=== PATIENT | male | born 1965 | race Caucasian/White ===

== ENCOUNTER 2017-02-18 22:45 | Observation (INO) | payer OTHER ==
[~2017-02-18] VITALS: Ht 180.3 cm; Wt 94.7 kg
[2017-02-19] VITALS (10 sets, daily range): BP systolic 98–133; BP diastolic 59–84
--- NOTE | 2017-02-19 00:32 | ED CLINICAL REPORT ---
Clinical Report - Physicians/Mid Levels [facility] [address] [place] [address] 02/18/2017 22:47 [id number] Time Seen: 23:19 Feb 18 2017. Arrived- By private vehicle. Historian- patient. CPT: ER phys charges level 5 (#[id number]). HISTORY OF PRESENT ILLNESS Chief Complaint: ABDOMINAL PAIN. It is described as "pain" and it is described as located in the periumbilical area. 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 (about 2 - 3 days ago, but worsened today starting about 8 hours ago). He has had nausea and abdominal pain. Last oral intake by patient was (about about 13 hours ago). and is still present. At its maximum, severity described as moderate. When seen in the E.D., severity described as severe. Modifying factors- worsened by movement. Not relieved by anything. The patient has had nausea and loss of appetite. No vomiting or diarrhea. Similar symptoms previously: None. Recent medical care: Not recently seen/assessed. REVIEW OF SYSTEMS No constipation, black stools, hematemesis, difficulty with urination or pain with urination. No urinary frequency, fever, sore throat or throat or chest pain. No difficulty breathing, cough, joint pain, skin rash or chills. No back pain, diabetic symptoms or easy bruising. All systems otherwise negative, except as recorded above. PAST HISTORY Testicular Torsion. Myocardial Infarction. Medications: Lisinopril Oral, daily. Metoprolol Succinate ER Oral, daily. Allergies: No Known Drug Allergy. SOCIAL HISTORY Heavy tobacco smoker (cigarette)- less than 1 pack per day. Heavy alcohol use; consumes a large amount of wine. History of drug use: marijuana. ADDITIONAL NOTES The nursing notes have been reviewed. PHYSICAL EXAM Vital Signs: 02/18/2017 22:50 BP: 108/68. HR: 62. RR: 16. O2 saturation: 97%. Temp: 98.1 F. Appearance: Alert. Appears to be in pain. Patient in moderate distress. Eyes: Pupils equal, round and reactive to light. Eyes normal inspection. ENT: Ears normal. Nose normal. Pharynx normal. Neck: Normal inspection. Neck supple. CVS: Normal heart rate and rhythm. Heart sounds normal. Pulses normal. Respiratory: No respiratory distress. Breath sounds normal. Chest nontender. Abdomen: Severe tenderness in the epigastric area (over an umbilical hernia.). Abnormal bowel sounds: absent. Back: Normal inspection. Skin: Skin warm. Normal skin color. No rash. Extremities: Extremities exhibit normal ROM. No lower extremity edema. Neuro: Oriented X 3. No motor deficit. No sensory deficit. Reflexes normal. LABS, X-RAYS, AND EKG Abdominal CT: Umbilical hernia , fat containing but adjacent bowel that may be edemetous as has thickened wall. Abdominal CT performed with IV contrast. The study was independently viewed by me and interpreted by the radiologist. Laboratory Tests: CBC w Diff: (EDGARD: 02/18/2017 22:50) ( [facility] [place]18[place] 23:30[place] Final results Test Result Flag Units (Reference) WHITE BLOOD COUNT 11.7 H K/uL (4.5-11.5) RED BLOOD COUNT 4.75 M/uL (4.50-5.90) HEMOGLOBIN 15.4 gm/dL (13.5-17.5) HEMATOCRIT 46.1 % (41.0-53.0) MEAN CELL VOLUME 97 fL (80-100) MEAN CORPUSCULAR HGB 32 pg (26-34) MEAN CORPUSCULAR HGB CONC 33 g/dL (31-37) RED CELL DISTRIBUTION WIDTH 13.9 % (11.6-14.8) PLATELET COUNT 184 K/uL (150-400) LYMPH % 36.0 % (25-40) MONO % 6.2 % (3-14) GRANULOCYTE % 57.8 CHEM 13 PANEL: (EDGARD: 02/18/2017 22:50) ( [facility] [place] 02/18/2017 23:43) Final results Test Result Flag Units (Reference) GLUCOSE 107 mg/dL (70-110) BUN 13 mg/dL (7-18) CREATININE 1.0 mg/dL (0.6-1.3) Estimated GFR >60 mL/min Estimated GFR- >60 mL/min Note: Persistent reduction over 3 months in eGFR<60 mL/min/1.73 m2 defines CKD. Patients with eGFR values>=60 mL/min/1.73 m2 may also have CKD if evidence ofpersistent proteinuria. Additional information may be foundat www.kidney.org. SODIUM 143 mmol/L (136-145) POTASSIUM 3.8 mmol/L (3.5-5.1) CHLORIDE 104 mmol/L (98-107) CARBON DIOXIDE 25 mmol/L (21-32) CALCIUM 8.7 mg/dL (8.5-10.1) TOTAL PROTEIN 7.3 g/dL (6.4-8.2) ALBUMIN 3.8 g/dL (3.3-5.0) BILIRUBIN, TOTAL 0.6 mg/dL (0.0-1.0) ALKALINE PHOSPHATASE 64 U/L (46-116) AST (SGOT) 18 U/L (15-37) ALT (SGPT) 28 U/L (12-78) MAGNESIUM 2.1 mg/dL (1.8-2.4) CPK 108 U/L (24-260) TROPONIN I <0.05 ng/mL (0.00-1.5) TROPONIN REFERENCE RANGE:<0.1 NEGATIVE0.1-1.5 INDETERMINANT>1.5 POSITIVE . PROGRESS AND PROCEDURES Course of Care: IV NS Dilaudid 0.5 mg IV Zofran 4 mg IV Patient is stable. Symptoms much better. Discussed case with on-call health care provider, (Kristy). Reviewed test results. Agreed upon treatment plan and decision to admit. Health care provider will see patient in hospital. Patient/family counseled. Disposition orders written. Disposition: Admitted to Acute Care. CLINICAL IMPRESSION Acute incarcerated umbilical hernia. INSTRUCTIONS Warnings: Further evaluation is necessary. (Electronically signed by Jasen Lynch MD 02/19/2017 15:06)
--- NOTE | 2017-02-19 00:32 | ED ORDER SUMMARY ---
..... Patient: BORIS WHITE OrderSheet [facility] VisitID: [id number] [place] [address] 51y, M Registration Date/Time: 02/18/2017 ORDER SHEET Weight: 97.5 kg (stated) Allergies: No Known Drug Allergy GENERAL ORDERS: CT Abd/Pel w Cont (No) (pending) Urgent (23:02/18/2017 [place] CASTRO) (Ack 23:28 Shon) (23:59 Yunior R.N.) Cardiac Panel Stat (:02/18/2017 [place]) (Ack 23:28 Shon) (23:37 JYuval R.N.) PT with INR Urgent (:02/19/2017 [place]) (Ack 1:20 Shon) (1:47 Ngoziy R.N.) PTT Urgent (:02/19/2017 [place]) (Ack 1:20 Shon) (1:47 JQuivey R.N.) MEDICATION ORDERS: IV FLUIDS: IV Saline Lock (22:56 02/18/2017 Jenna Stallings.Tai verbal order read back to [place]) (22:57 Jenna R.N.) IV NS : initial bolus none -, then 150 mL/hr for 4h (NOW); Routine (23:02/18/2017 [place]) (Ack 23:26 EleQuivey R.N.) (23:35 JQuivey R.N.) Dilaudid IV 0.5 mg (NOW) (:02/18/2017 [place]) (Ack 23:26 Yunior R.N.) (23:36 JQuivey R.N.) Zofran IV 4 mg (NOW) (:02/18/2017 [place]) (Ack 23:26 Averyivemike R.N.) (23:36 JQuivey R.N.) ORDER SHEET NOTES: [Electronically signed by Abdi Barakat R.N. (02:02/19/2017)] [Electronically signed by Jasen Lynch MD (15:02/19/2017)] [Electronically locked/signed by Abdi Barakat R.N. (02:02/19/2017)]
--- NOTE | 2017-02-19 00:32 | ED ORDER SUMMARY ---
..... Patient: BORIS WHITE OrderSheet [facility] VisitID: [id number] [place] [address] 51y, M Registration Date/Time: 02/18/2017 ORDER SHEET Weight: 97.5 kg (stated) Allergies: No Known Drug Allergy GENERAL ORDERS: CT Abd/Pel w Cont (No) (pending) Urgent (23:02/18/2017 [place]) (Ack 23:28 Shon) (23:59 Yunior R.N.) Cardiac Panel Stat (:02/18/2017 [place]) (Ack 23:28 Shon) (23:37 JYuval R.N.) PT with INR Urgent (:02/19/2017 [place]) (Ack 1:20 Shon) (1:47 Ngoziy R.N.) PTT Urgent (:02/19/2017 [place]) (Ack 1:20 Shon) (1:47 JQuivey R.N.) MEDICATION ORDERS: IV FLUIDS: IV Saline Lock (22:56 02/18/2017 Jenna Stallings.Tai verbal order read back to [place]) (22:57 Jenna R.N.) IV NS : initial bolus none -, then 150 mL/hr for 4h (NOW); Routine (23:02/18/2017 [place]) (Ack 23:26 EleQuivey R.N.) (23:35 JQuivey R.N.) Dilaudid IV 0.5 mg (NOW) (:02/18/2017 [place]) (Ack 23:26 Yunior R.N.) (23:36 JQuivey R.N.) Zofran IV 4 mg (NOW) (:02/18/2017 [place]) (Ack 23:26 Averyivemike R.N.) (23:36 JQuivey R.N.) ORDER SHEET NOTES: [Electronically signed by Abdi Barakat R.N. (02:02/19/2017)] [Electronically signed by Jasen Lynch MD (15:02/19/2017)] [Electronically locked/signed by Abdi Barakat R.N. (02:02/19/2017)]
--- NOTE | 2017-02-19 00:32 | ED NURSING NOTES ---
Clinical Report - Nurses [facility] [address] [place] [address] 02/18/2017 22:47 [id number] Triage time 22:50 Feb 18 2017. Acuity: LEVEL 3. Chief Complaint: ABDOMINAL PAIN and NAUSEA. Alert. HELENA COMA SCORE: [place] Coma Scale: 15- eyes open spontaneously (4); best verbal response- oriented x 4 (5); best motor response- obeys commands (6). --23:08 Abdi Burns R.N. 22:50 02/18/17. BP: 108/68. HR: 62. RR: 16. O2 saturation: 97% on room air. Temp: 98.1 F. --23:08 Abdi Burns R.N. Weight: 97.5 kg stated. Height/Length: 71 inches Per Patient. BMI: 30. --22:57 Abdi Burns R.N. Medications Metoprolol Succinate ER Oral, daily. --22:53 Abdi Burns R.N. Lisinopril Oral, daily. --22:54 Adbi Burns R.N. Medication/allergy information source: the patient. --23:08 Abdi Burns R.N. Allergies No Known Drug Allergy. --22:55 Abdi Burns R.N. History Arrived by private vehicle. Historian: patient. Accompanied by spouse. Primary physician ([place]). ( LLQ and periumbilical abdominal pain.). Onset. (about 2 - 3 days ago, but worsened today starting about 8 hours ago). He has had nausea and abdominal pain. Last oral intake by patient was (about about 13 hours ago). 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 PAST MEDICAL HX: Immunizations: status is unknown. SOCIAL HX: Heavy tobacco smoker (cigarette)- 1 pack per day. Alcohol use; consumes four bottles of wine. History of drug use: marijuana. No recent travel. No infectious disease exposure. No known contact with a sick individual. ABUSE ASSESSMENT: No report of abuse. FALL RISK ASSESSMENT: Fall risk assessment completed. No fall risk identified. NUTRITIONAL RISK ASSESSMENT: The nutritional risk assessment revealed no deficiencies. FUNCTIONAL ASSESSMENT: Functional assessment: no impairments noted. LEARNING NEEDS ASSESSMENT: The learning needs assessment revealed no barriers. SKIN INTEGRITY ASSESSMENT: Skin integrity risk assessment completed. No skin integrity risk identified. --23:08 Abdi Burns R.N. PROBLEMS: Testicular Torsion. Myocardial Infarction. --23:04 Abdi Burns R.N. Interventions ID band on patient. To treatment room. --23:08 Abdi Burns R.N. PHYSICAL ASSESSMENT Ambulatory to room. GENERAL / NEURO / PSYCH: Alert. Oriented X 4. Appears in pain. HEENT: Mucous membranes are pink. RESPIRATORY: Respirations not labored. CVS: Normal sinus rhythm noted. GI / : Abdomen soft and nontender. SKIN: Skin is warm and dry. --23:08 Abdi Burns R.N. NURSING PROGRESS NOTES 22:52 02/18/2017 Site #1 started via IV in the right forearm with an 18g angiocath, with aseptic technique and good blood return; one attempt. Blood drawn: rainbow set. Labeled in the presence of the patient and sent to the lab. Saline lock flushed with 10 mL saline (start by Tami Patton, RN). --22:57 Abdi Burns R.N. Oxygen administered. Monitoring of patient in place. Patient gowned. Reassurance given to the patient. Patient identifiers checked. Call light placed in reach. Side rails up x 1. Bed placed in lowest position. Brakes of bed on. Patient ready for evaluation- chart flagged and ED physician notified. --23:09 Abdi Burns R.N. 23:30 02/18/2017 Started bag #1 1000 mL IV Fluids IV NS (Saline); at 150 mL/hr over 4 hour(s) via site #1 via IV pump. Allergies verified and confirmed 5 rights. IV patency established. IV site checked: no pain, redness, or swelling. IV flushed thoroughly pre- and post-medication administration. --23:35 Abdi Barakat R.N. 23:31 02/18/2017 Zofran (Ondansetron HCl) IVP 4 mg given over 2 minute(s) via site #1. Allergies verified and confirmed 5 rights. IV patency established. IV site checked: no pain, redness, or swelling. IV flushed thoroughly pre- and post-medication administration. --23:36 Abdi Barakat R.N. 23:33 02/18/2017 Dilaudid (HYDROmorphone HCl PF) IVP 0.5 mg given over 2 minute(s) via site #1. Allergies verified, confirmed 5 rights and sedative warning given to the patient and patient's family. IV patency established. IV site checked: no pain, redness, or swelling. IV flushed thoroughly pre- and post-medication administration. --23:36 Abdi Barakat R.N. 23:40. Patient ID band checked for patient name and birthdate: patient confirmed. Clean catch urine collected with return of yellow-colored clear urine; sample sent to lab. Specimen labeled in the presence of the patient. --23:49 Abdi Barakat R.N. 23:47. Patient transported to CT by stretcher with tech. --23:49 Abdi Barakat R.N. 23:57. Patient returned from CT by stretcher with tech. --23:57 Abdi Barakat R.N. 00:15 02/19/17. BP: 115/66. HR: 58. RR: 16. O2 saturation: 95%. Pain level now: 12/28. --00:18 Abdi Burns R.N. DISPOSITION / DISCHARGE 00:57 02/19/17. BP: 113/70. HR: 73. RR: 15. O2 saturation: 94% on room air. Pain level now: 12/28. --01:25 Abdi Barakat R.N. Condition at departure: stable. No learning barriers present. Disposition: observation in Acute Care. Transported via stretcher by tech with IV. Patient's personal items include: glasses, Other belongings; items were placed in belongings bag and transported with the patient. He did not have contacts, dentures or a hearing aid. FALL RISK ASSESSMENT: Fall risk assessment completed. No fall risk identified. --01:25 Abdi Barakat R.N. 01:25 02/19/17. BP: 104/65. HR: 70. RR: 16. O2 saturation: 96% on room air. Pain level now: 12/28. --01:26 Abdi Barakat R.N. 01:31. Report was given via a phone call. Report included patient's care, treatment, medications, reviewed medication reconcilliation, and condition (including any recent changes or anticipated changes). All questions were answered. Report was acknowledged. (Eugenie SaabPhlebotomy Lab Assistant). --01:31 Abdi Barakat R.N. 01:50 02/19/2017 IV Fluids IV NS Continued: upon admission at the rate of 150 mL/hr. 625 mL remaining bag #1. IV patency established. IV site checked: no pain, redness, or swelling. IV flushed thoroughly. --01:50 Abdi Barakat R.N. Departure time: 01:56. --01:56 Abdi Barakat R.N. Locked/Released at 02/19/2017 2:06 by Abdi Barakat R.N.
--- NOTE | 2017-02-19 00:32 | ED NURSING NOTES ---
Clinical Report - Nurses [facility] [address] [place] [address] 02/18/2017 22:47 [id number] TRI[facility] Triage time 22:50 Feb 18 2017. Acuity: LEVEL 3. Chief Complaint: ABDOMINAL PAIN and NAUSEA. Alert. HELENA COMA SCORE: [place] Coma Scale: 15- eyes open spontaneously (4); best verbal response- oriented x 4 (5); best motor response- obeys commands (6). --23:08 Abdi Burns R.N. 22:50 02/18/17. BP: 108/68. HR: 62. RR: 16. O2 saturation: 97% on room air. Temp: 98.1 F. --23:08 Abdi Burns R.N. Weight: 97.5 kg stated. Height/Length: 71 inches Per Patient. BMI: 30. --22:57 Abdi Burns R.N. Medications Metoprolol Succinate ER Oral, daily. --22:53 Abdi Burns R.N. Lisinopril Oral, daily. --22:54 Abdi Burns R.N. Medication/allergy information source: the patient. --23:08 Abdi Burns R.N. Allergies No Known Drug Allergy. --22:55 Abdi Burns R.N. History Arrived by private vehicle. Historian: patient. Accompanied by spouse. Primary physician ([place]). ( LLQ and periumbilical abdominal pain.). Onset. (about 2 - 3 days ago, but worsened today starting about 8 hours ago). He has had nausea and abdominal pain. Last oral intake by patient was (about about 13 hours ago). 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 PAST MEDICAL HX: Immunizations: status is unknown. SOCIAL HX: Heavy tobacco smoker (cigarette)- 1 pack per day. Alcohol use; consumes four bottles of wine. History of drug use: marijuana. No recent travel. No infectious disease exposure. No known contact with a sick individual. ABUSE ASSESSMENT: No report of abuse. FALL RISK ASSESSMENT: Fall risk assessment completed. No fall risk identified. NUTRITIONAL RISK ASSESSMENT: The nutritional risk assessment revealed no deficiencies. FUNCTIONAL ASSESSMENT: Functional assessment: no impairments noted. LEARNING NEEDS ASSESSMENT: The learning needs assessment revealed no barriers. SKIN INTEGRITY ASSESSMENT: Skin integrity risk assessment completed. No skin integrity risk identified. --23:08 Abdi Burns R.N. PROBLEMS: Testicular Torsion. Myocardial Infarction. --23:04 Abdi Burns R.N. Interventions ID band on patient. To treatment room. --23:08 Abdi Burns R.N. PHYSICAL ASSESSMENT Ambulatory to room. GENERAL / NEURO / PSYCH: Alert. Oriented X 4. Appears in pain. HEENT: Mucous membranes are pink. RESPIRATORY: Respirations not labored. CVS: Normal sinus rhythm noted. GI / : Abdomen soft and nontender. SKIN: Skin is warm and dry. --23:08 Abdi Burns R.N. NURSING PROGRESS NOTES 22:52 02/18/2017 Site #1 started via IV in the right forearm with an 18g angiocath, with aseptic technique and good blood return; one attempt. Blood drawn: rainbow set. Labeled in the presence of the patient and sent to the lab. Saline lock flushed with 10 mL saline (start by Tami Patton, RN). --22:57 Abdi Burns R.N. Oxygen administered. Monitoring of patient in place. Patient gowned. Reassurance given to the patient. Patient identifiers checked. Call light placed in reach. Side rails up x 1. Bed placed in lowest position. Brakes of bed on. Patient ready for evaluation- chart flagged and ED physician notified. --23:09 Abdi Burns R.N. 23:30 02/18/2017 Started bag #1 1000 mL IV Fluids IV NS (Saline); at 150 mL/hr over 4 hour(s) via site #1 via IV pump. Allergies verified and confirmed 5 rights. IV patency established. IV site checked: no pain, redness, or swelling. IV flushed thoroughly pre- and post-medication administration. --23:35 Abdi Barakat R.N. 23:31 02/18/2017 Zofran (Ondansetron HCl) IVP 4 mg given over 2 minute(s) via site #1. Allergies verified and confirmed 5 rights. IV patency established. IV site checked: no pain, redness, or swelling. IV flushed thoroughly pre- and post-medication administration. --23:36 Abdi Barakat R.N. 23:33 02/18/2017 Dilaudid (HYDROmorphone HCl PF) IVP 0.5 mg given over 2 minute(s) via site #1. Allergies verified, confirmed 5 rights and sedative warning given to the patient and patient's family. IV patency established. IV site checked: no pain, redness, or swelling. IV flushed thoroughly pre- and post-medication administration. --23:36 Abdi Barakat R.N. 23:40. Patient ID band checked for patient name and birthdate: patient confirmed. Clean catch urine collected with return of yellow-colored clear urine; sample sent to lab. Specimen labeled in the presence of the patient. --23:49 Abdi Barakat R.N. 23:47. Patient transported to CT by stretcher with tech. --23:49 Abdi Barakat R.N. 23:57. Patient returned from CT by stretcher with tech. --23:57 Abdi Barakat R.N. 00:15 02/19/17. BP: 115/66. HR: 58. RR: 16. O2 saturation: 95%. Pain level now: 12/28. --00:18 Abdi Burns R.N. DISPOSITION / DISCHARGE 00:57 02/19/17. BP: 113/70. HR: 73. RR: 15. O2 saturation: 94% on room air. Pain level now: 12/28. --01:25 Abdi Barakat R.N. Condition at departure: stable. No learning barriers present. Disposition: observation in Acute Care. Transported via stretcher by tech with IV. Patient's personal items include: glasses, Other belongings; items were placed in belongings bag and transported with the patient. He did not have contacts, dentures or a hearing aid. FALL RISK ASSESSMENT: Fall risk assessment completed. No fall risk identified. --01:25 Abdi Barakat R.N. 01:25 02/19/17. BP: 104/65. HR: 70. RR: 16. O2 saturation: 96% on room air. Pain level now: 12/28. --01:26 Abdi Barakat R.N. 01:31. Report was given via a phone call. Report included patient's care, treatment, medications, reviewed medication reconcilliation, and condition (including any recent changes or anticipated changes). All questions were answered. Report was acknowledged. (Eugenie SaabClinical Trial Assistant). --01:31 Abdi Barakat R.N. 01:50 02/19/2017 IV Fluids IV NS Continued: upon admission at the rate of 150 mL/hr. 625 mL remaining bag #1. IV patency established. IV site checked: no pain, redness, or swelling. IV flushed thoroughly. --01:50 Abdi Barakat R.N. Departure time: 01:56. --01:56 Abdi Barakat R.N. Locked/Released at 02/19/2017 2:06 by Abdi Barakat R.N.
--- NOTE | 2017-02-19 00:32 | ED CLINICAL REPORT ---
Clinical Report - Physicians/Mid Levels [facility] [address] [place] [address] 02/18/2017 22:47 [id number] Time Seen: 23:19 Feb 18 2017. Arrived- By private vehicle. Historian- patient. CPT: ER phys charges level 5 (#[id number]). HISTORY OF PRESENT ILLNESS Chief Complaint: ABDOMINAL PAIN. It is described as "pain" and it is described as located in the periumbilical area. 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 (about 2 - 3 days ago, but worsened today starting about 8 hours ago). He has had nausea and abdominal pain. Last oral intake by patient was (about about 13 hours ago). and is still present. At its maximum, severity described as moderate. When seen in the E.D., severity described as severe. Modifying factors- worsened by movement. Not relieved by anything. The patient has had nausea and loss of appetite. No vomiting or diarrhea. Similar symptoms previously: None. Recent medical care: Not recently seen/assessed. REVIEW OF SYSTEMS No constipation, black stools, hematemesis, difficulty with urination or pain with urination. No urinary frequency, fever, sore throat or throat or chest pain. No difficulty breathing, cough, joint pain, skin rash or chills. No back pain, diabetic symptoms or easy bruising. All systems otherwise negative, except as recorded above. PAST HISTORY Testicular Torsion. Myocardial Infarction. Medications: Lisinopril Oral, daily. Metoprolol Succinate ER Oral, daily. Allergies: No Known Drug Allergy. SOCIAL HISTORY Heavy tobacco smoker (cigarette)- less than 1 pack per day. Heavy alcohol use; consumes a large amount of wine. History of drug use: marijuana. ADDITIONAL NOTES The nursing notes have been reviewed. PHYSICAL EXAM Vital Signs: 02/18/2017 22:50 BP: 108/68. HR: 62. RR: 16. O2 saturation: 97%. Temp: 98.1 F. Appearance: Alert. Appears to be in pain. Patient in moderate distress. Eyes: Pupils equal, round and reactive to light. Eyes normal inspection. ENT: Ears normal. Nose normal. Pharynx normal. Neck: Normal inspection. Neck supple. CVS: Normal heart rate and rhythm. Heart sounds normal. Pulses normal. Respiratory: No respiratory distress. Breath sounds normal. Chest nontender. Abdomen: Severe tenderness in the epigastric area (over an umbilical hernia.). Abnormal bowel sounds: absent. Back: Normal inspection. Skin: Skin warm. Normal skin color. No rash. Extremities: Extremities exhibit normal ROM. No lower extremity edema. Neuro: Oriented X 3. No motor deficit. No sensory deficit. Reflexes normal. LABS, X-RAYS, AND EKG Abdominal CT: Umbilical hernia , fat containing but adjacent bowel that may be edemetous as has thickened wall. Abdominal CT performed with IV contrast. The study was independently viewed by me and interpreted by the radiologist. Laboratory Tests: CBC w Diff: (EDGARD: 02/18/2017 22:50) ( [facility] 02/18/2017 23:30) Final results Test Result Flag Units (Reference) WHITE BLOOD COUNT 11.7 H K/uL (4.5-11.5) RED BLOOD COUNT 4.75 M/uL (4.50-5.90) HEMOGLOBIN 15.4 gm/dL (13.5-17.5) HEMATOCRIT 46.1 % (41.0-53.0) MEAN CELL VOLUME 97 fL (80-100) MEAN CORPUSCULAR HGB 32 pg (26-34) MEAN CORPUSCULAR HGB CONC 33 g/dL (31-37) RED CELL DISTRIBUTION WIDTH 13.9 % (11.6-14.8) PLATELET COUNT 184 K/uL (150-400) LYMPH % 36.0 % (25-40) MONO % 6.2 % (3-14) GRANULOCYTE % 57.8 CHEM 13 PANEL: (EDGARD: 02/18/2017 22:50) ( [facility] 02/18/2017 23:43) Final results Test Result Flag Units (Reference) GLUCOSE 107 mg/dL (70-110) BUN 13 mg/dL (7-18) CREATININE 1.0 mg/dL (0.6-1.3) Estimated GFR >60 mL/min Estimated GFR- >60 mL/min Note: Persistent reduction over 3 months in eGFR<60 mL/min/1.73 m2 defines CKD. Patients with eGFR values>=60 mL/min/1.73 m2 may also have CKD if evidence ofpersistent proteinuria. Additional information may be foundat [email or web address].org. SODIUM 143 mmol/L (136-145) POTASSIUM 3.8 mmol/L (3.5-5.1) CHLORIDE 104 mmol/L (98-107) CARBON DIOXIDE 25 mmol/L (21-32) CALCIUM 8.7 mg/dL (8.5-10.1) TOTAL PROTEIN 7.3 g/dL (6.4-8.2) ALBUMIN 3.8 g/dL (3.3-5.0) BILIRUBIN, TOTAL 0.6 mg/dL (0.0-1.0) ALKALINE PHOSPHATASE 64 U/L (46-116) AST (SGOT) 18 U/L (15-37) ALT (SGPT) 28 U/L (12-78) MAGNESIUM 2.1 mg/dL (1.8-2.4) CPK 108 U/L (24-260) TROPONIN I <0.05 ng/mL (0.00-1.5) TROPONIN REFERENCE RANGE:<0.1 NEGATIVE0.1-1.5 INDETERMINANT>1.5 POSITIVE . PROGRESS AND PROCEDURES Course of Care: IV NS Dilaudid 0.5 mg IV Zofran 4 mg IV Patient is stable. Symptoms much better. Discussed case with on-call health care provider, (Kristy). Reviewed test results. Agreed upon treatment plan and decision to admit. Health care provider will see patient in hospital. Patient/family counseled. Disposition orders written. Disposition: Admitted to Acute Care. CLINICAL IMPRESSION Acute incarcerated umbilical hernia. INSTRUCTIONS Warnings: Further evaluation is necessary. (Electronically signed by Jasen Lynch MD 02/19/2017 15:06)
[2017-02-19] MEDS ORDERED: CITALOPRAM HYDR40 MG PO (01:51)
[2017-02-19] MEDS ORDERED: TOPROL XL50 MG PO (02:15)
[2017-02-19] MEDS ORDERED: ZESTRIL2.5 MG PO (02:16)
[2017-02-19] MEDS ORDERED: ASPIRIN ADULT L81 M1 PO (02:16)
--- NOTE | 2017-02-19 06:21 | History & Physical Report ---
Information Source Information Source: Self Reliability: Good History Chief Complaint Abdominal pain History of Present Illness 51-year-old male with approximately 3 day history of progressive abdominal pain. Located periumbilical region. Started out as mild. Worsened prior to admission. Not associated with vomiting. Described as constant and exacerbated with movement. Patient has known to have an umbilical hernia and was told at one time to have it repaired but because of his job he did not seek surgery. Patient History 1. Incarcerated umbilical hernia Social History . One son and 1 daughter alive and well Patient smokes 3/4-1 pack of cigarettes a day. 1-4 drinks of alcohol per week. (Probably more) Patient smokes marijuana on a weekly basis 1 g per week. Occupation: [employer] history: None FAMILY HISTORY: Mother age 68 sepsis. History of Rosemarie's vasculitis. Father age 78 complications mesothelioma Patient has 1 full brother and 1 half-brother they're of good health. One sister alive and well. Medications and Allergies Medications Patient is presently on metoprolol, lisinopril, and aspirin. Patient cannot recall the dose at this point. Current Medications Sig/Olegario Start time Last Medication Dose Route Stop Time Status Admin Metoclopramide HCl 10 MG Q6HR 02/19 0600 AC 02/19 IV 0544 Nicotine 21 MG QAM 02/19 0422 AC TOP Meperidine HCl See Dose Q2H PRN 02/19 0115 AC 02/19 Insts (1) IV 0544 Ondansetron HCl 4 MG Q4H PRN 02/19 0115 AC IV Sodium Chloride 1,000 ML ASDIRECTED 02/19 0115 AC 02/19 IV 0246 Dose Instructions: (1)Meperidine HCl: 12.5 - 25 MG Allergies Coded Allergies: NKA (02/19/17) Review of Systems Other Patient denies any history of hepatitis, jaundice, rheumatic fever, heart murmurs requiring antibiotics, bleeding tendencies, or blood transfusions. Remaining 12 point review of system is negative. Physical Exam Vital Signs / I&Os Vital Signs Date Time Temp Pulse Resp B/P Pulse O2 O2 Flow FiO2 Ox Delivery Rate 02/19 0237 0.0 02/19 0216 97.9 59 18 111/73 95 Room Air General Appearance Alert, Oriented X3, Cooperative, No acute distress HEENT Atraumatic, PERRLA, EOMI, Moist mucous membranes Lungs Clear to auscultation Neck Supple, No JVD, No masses, No thyromegaly, No lymphadenopathy Cardiovascular Regular rate and rhythm, No murmurs, gallops, rubs Abdomen Normal bowel sounds, Soft, soft, tender, incarcerated umbilical hernia. No overlying erythema. Extremities No cyanosis, No clubbing, No edema Skin warm and dry Neurological No lateralizing signs Psych/Mental Status Mental status normal, Mood normal LAB Results Laboratory Tests 02/18 02/19 2250 0030 Chemistry Plasma Sodium (136 - 145 mmol/L) 143 Plasma Potassium (3.5 - 5.1 mmol/L) 3.8 Plasma Chloride (98 - 107 mmol/L) 104 CO2 (Enzymatic) (21 - 32 mmol/L) 25 BUN (7 - 18 mg/dL) 13 Creatinine (0.6 - 1.3 mg/dL) 1.0 Est GFR ( Amer) (mL/min) >60 Est GFR (Non-Af Amer) (mL/min) >60 Glucose (70 - 110 mg/dL) 107 Plasma Calcium (8.5 - 10.1 mg/dL) 8.7 Plasma Magnesium (1.8 - 2.4 mg/dL) 2.1 Total Bilirubin (0.0 - 1.0 mg/dL) 0.6 AST (15 - 37 U/L) 18 ALT (12 - 78 U/L) 28 Alkaline Phosphatase (46 - 116 U/L) 64 Creatine Kinase (24 - 260 U/L) 108 Troponin (0.00 - 1.5 ng/mL) <0.05 Total Protein (6.4 - 8.2 g/dL) 7.3 Albumin (3.3 - 5.0 g/dL) 3.8 Coagulation INR (0.8 - 1.2) 0.9 APTT (24 - 34 SECONDS) 26 Hematology WBC (4.5 - 11.5 K/uL) 11.7 RBC (4.50 - 5.90 M/uL) 4.75 Hgb (13.5 - 17.5 gm/dL) 15.4 Hct (41.0 - 53.0 %) 46.1 MCV (80 - 100 fL) 97 MCH (26 - 34 pg) 32 RDW (11.6 - 14.8 %) 13.9 Gran % 57.8 Lymph % (Auto) (25 - 40 %) 36.0 Dewey % (Auto) (3 - 14 %) 6.2 Plt Count, EDTA (150 - 400 K/uL) 184 PUBS MCHC (31 - 37 g/dL) [address] of abdomen and pelvis reveals incarcerated umbilical hernia. Assessment and Plan Problem List 1. Incarcerated umbilical hernia Plan IMPRESSION: Incarcerated umbilical hernia PLAN: Repair of incarcerated umbilical hernia. The procedure has been explained to the patient, including the potential risk of infection, recurrence, loss of umbilicus and damage to local structures. Patient understands and agrees to proceed. All questions answered to his satisfaction. We will schedule him appropriately.
--- NOTE | 2017-02-19 07:35 | DIAGNOSTIC IMAGING REPORT ---
PROCEDURE: CT ABD/PELVIS WITH CONTRAST CLINICAL INDICATION: ABDOMINAL PAIN TECHNIQUE: 125 ml of Isovue 300 were injected intravenously and axial images were obtained of the entire abdomen and pelvis with sagittal and coronal reformations. COMPARISON: CT abdomen/pelvis FINDINGS: ABDOMEN: Lung base are clear. Heart size is normal. Liver, gallbladder, pancreas, spleen, adrenal glands and the kidneys are normal. Minor atherosclerosis of the aorta. PELVIS: Normal appendix. Mild sigmoid diverticulosis. Several nondilated fluid filled loops of small bowel. Enlarged prostate (5 cm). 2 cm fat filled umbilical hernia. No pelvic mass, inflammatory changes or free fluid. No suspicious osseous lesions. IMPRESSION: 1. Diverticulosis 2. Several nondilated fluid filled loops of small bowel which may the normal or represent enteritis 3. Fat filled umbilical hernia 4. Preliminary results submitted by Dr. Stanley, [facility] radiology. All CT scans at this facility use dose modulation, iterative reconstruction, and/or weight-based dosing when appropriate to reduce radiation dose to as low as reasonably achievable.
--- NOTE | 2017-02-19 07:35 | DIAGNOSTIC IMAGING REPORT ---
PROCEDURE: CT ABD/PELVIS WITH CONTRAST CLINICAL INDICATION: ABDOMINAL PAIN TECHNIQUE: 125 ml of Isovue 300 were injected intravenously and axial images were obtained of the entire abdomen and pelvis with sagittal and coronal reformations. COMPARISON: CT abdomen/pelvis FINDINGS: ABDOMEN: Lung base are clear. Heart size is normal. Liver, gallbladder, pancreas, spleen, adrenal glands and the kidneys are normal. Minor atherosclerosis of the aorta. PELVIS: Normal appendix. Mild sigmoid diverticulosis. Several nondilated fluid filled loops of small bowel. Enlarged prostate (5 cm). 2 cm fat filled umbilical hernia. No pelvic mass, inflammatory changes or free fluid. No suspicious osseous lesions. IMPRESSION: 1. Diverticulosis 2. Several nondilated fluid filled loops of small bowel which may the normal or represent enteritis 3. Fat filled umbilical hernia 4. Preliminary results submitted by Dr. Stanley, [facility] radiology. All CT scans at this facility use dose modulation, iterative reconstruction, and/or weight-based dosing when appropriate to reduce radiation dose to as low as reasonably achievable.
[2017-02-19] MEDS ORDERED: PERCOCET1 TA1 PO (13:02)
--- NOTE | 2017-02-19 13:03 | Provider's Discharge Care Plan ---
Problem, Goal, Plan Problem List 1. S/P REPAIR INCARCERATED UMBILICAL HERNIA Goals: Improve disease control, Improve function, Therapeutic intervention Instructions: Follow up as directed, Take meds as directed, abdominal binder 13/05
--- NOTE | 2017-02-19 13:22 | Operative Report ---
Operative Report Date of Surgery: 02/19/17 Preoperate Diagnosis: incarcerated umbilical hernia. Postoperative Diagnosis: incarcerated umbilical hernia. Surgeon: Oziel Wagner MD Consumer Electronics Merchandiser Surgeon: none Procedure Performed: Open repair of umbilical hernia. Anesthesia: General endotracheal Indications: 51-year-old male who presented to the emergency room with a symptomatic incarcerated umbilical hernia. Findings: Incarcerated omentum protruding through a 3 cm fascial defect of the umbilicus. No evidence of ischemic changes. Surgical Technique: Patient brought to the operating room. Patient was placed in the supine position. Patient underwent general endotracheal anesthesia. After proper anesthesia taken effect, the patient's abdomen was prepped using Betadine and draped in a sterile fashion. A curvilinear incision made about the umbilicus. This incision was carried down to skin and subcutaneous tissue. Using a combination of sharp and blunt dissection we were able to dissect the hernia from the surrounding subcutaneous tissue. This dissection continued down onto the fascia. The hernia sac was then transected at the level of the fascia. The above findings noted The omentum was returned to the anterior abdominal cavity. The fascial edges were approximated using O-Surgidac interrupted figure-of- eight suture. The wound was irrigated with warm normal saline. The wound was closed in layers using 3-olysorb. The skin was approximated using running subcuticular 4-0 Polysorb. Steri-Strips were placed over the wound. Sterile occlusive dressing was placed over the surgical site. Patient was placed in an abdominal binder. Patient was extubated. Patient was transferred to recovery room in stable condition. There were no intraoperative anesthetic, occasions. COMPLICATIONS: None CONDITION: Stable to postop anesthesia recovery room ESTIMATED BLOOD LOSS: None FLUIDS: 60 cc lactated Ringer's DRAINS: None SPECIMENS: None
--- NOTE | 2017-02-19 15:06 | ED MAR SUMMARY ---
..... Medication Administration Record [facility] [address] [place] [address] Patient: BORIS WHITE Visit ID: [id number] 51y, M Weight: 97.5 kg Height/Length: 71 in BMI: 30 ALLERGIES: No Known Drug Allergy Start 23:30 02/18/2017 Abdi Barakat R.N., Continued Upon Admission 01:50 02/19/2017 Abdi Barakat R.N. Medication Administered: IV NS (SALINE), Dose: IV Fluids over 4 hour(s), Rate: 150 mL/hr, Dispensed: 1000 mL bag, Site: #1 right forearm. Medication Ordered: IV NS : initial bolus none -, then 150 mL/hr for 4h (NOW); Routine. Given 23:31 02/18/2017 Abdi Barakat R.N. Medication Administered: ZOFRAN [IVP] (ONDANSETRON HCL), Dose: 4 mg IVP over 2 minute(s), Site: #1 right forearm. Medication Ordered: Zofran IV 4 mg (NOW). Given 23:33 02/18/2017 Abdi Barakat R.N. Medication Administered: DILAUDID [IVP] (HYDROMORPHONE HCL PF), Dose: 0.5 mg IVP over 2 minute(s), Site: #1 right forearm. Medication Ordered: Dilaudid IV 0.5 mg (NOW).
--- NOTE | 2017-02-19 15:06 | ED DISCHARGE INSTRUCTIONS ---
Patient: BORIS WHITE General Instructions [facility] VisitID: [id number] [address] [address] 51y, M Registration Date/Time: 02/18/2017 Acute incarcerated umbilical hernia. INSTRUCTIONS Warnings: Further evaluation is necessary. (Electronically signed by Jasen Lynch MD 02/19/2017 15:06)
--- NOTE | 2017-02-19 15:06 | ED MAR SUMMARY ---
..... Medication Administration Record [facility] [address] [place] [address] Patient: BORIS WHITE Visit ID: [id number] 51y, M Weight: 97.5 kg Height/Length: 71 in BMI: 30 ALLERGIES: No Known Drug Allergy Start 23:30 02/18/2017 Abdi Barakat R.N., Continued Upon Admission 01:50 02/19/2017 Abdi Barakat R.N. Medication Administered: IV NS (SALINE), Dose: IV Fluids over 4 hour(s), Rate: 150 mL/hr, Dispensed: 1000 mL bag, Site: #1 right forearm. Medication Ordered: IV NS : initial bolus none -, then 150 mL/hr for 4h (NOW); Routine. Given 23:31 02/18/2017 Abdi Barakat R.N. Medication Administered: ZOFRAN [IVP] (ONDANSETRON HCL), Dose: 4 mg IVP over 2 minute(s), Site: #1 right forearm. Medication Ordered: Zofran IV 4 mg (NOW). Given 23:33 02/18/2017 Abdi Barakat R.N. Medication Administered: DILAUDID [IVP] (HYDROMORPHONE HCL PF), Dose: 0.5 mg IVP over 2 minute(s), Site: #1 right forearm. Medication Ordered: Dilaudid IV 0.5 mg (NOW).
--- NOTE | 2017-02-19 15:06 | ED MED RECONCILIATION SUMMARY ---
Patient: BORIS WHITE Medication Reconciliation Report [facility] VisitID: [id number] [address] [place] [address] 51y, M Registration Date/Time: 02/18/2017 Weight: 97.5 kg Height/Length: 71 in. BMI: 30.0 ALLERGIES: No Known Drug Allergy The patient's Home Medications are listed below: THE FOLLOWING MEDICATIONS NEED TO BE RECONCILED: Lisinopril Oral, daily Metoprolol Succinate ER Oral, daily The source(s) of the original Home Medication information: patient The following Medications were given to the patient in the Emergency Department: IV NS IV Fluids bolus 0, then 150 mL/hr, administered: 02/18/2017 11:30:00 PM Zofran [IVP] IVP 4 mg, administered: 02/18/2017 11:31:00 PM Dilaudid [IVP] IVP 0.5 mg, administered: 02/18/2017 11:33:00 PM The following Medications were prescribed to the patient: None.
--- NOTE | 2017-02-19 15:06 | ED DISCHARGE INSTRUCTIONS ---
Patient: BORIS WHITE General Instructions [facility] VisitID: [id number] [address] [place] [place] [address] 51y, M Registration Date/Time: 02/18/2017 Acute incarcerated umbilical hernia. INSTRUCTIONS Warnings: Further evaluation is necessary. (Electronically signed by Jasen Lynch MD 02/19/2017 15:06)
--- NOTE | 2017-02-19 15:06 | ED MED RECONCILIATION SUMMARY ---
Patient: BORIS WHITE Medication Reconciliation Report [facility] VisitID: [id number] [address] [place] [address] 51y, M Registration Date/Time: 02/18/2017 Weight: 97.5 kg Height/Length: 71 in. BMI: 30.0 ALLERGIES: No Known Drug Allergy The patient's Home Medications are listed below: THE FOLLOWING MEDICATIONS NEED TO BE RECONCILED: Lisinopril Oral, daily Metoprolol Succinate ER Oral, daily The source(s) of the original Home Medication information: patient The following Medications were given to the patient in the Emergency Department: IV NS IV Fluids bolus 0, then 150 mL/hr, administered: 02/18/2017 11:30:00 PM Zofran [IVP] IVP 4 mg, administered: 02/18/2017 11:31:00 PM Dilaudid [IVP] IVP 0.5 mg, administered: 02/18/2017 11:33:00 PM The following Medications were prescribed to the patient: None.
== END 2017-02-19 18:15 | disposition home or self-care (01) ==
LOC: ED SRH 22:45 → TRANS SRH 02-19 00:42 → ACUTE2 SRH 02-19 00:42
PROVIDERS: ADMIT Specialist
PROC: 0WQF0ZZ Repair Abdominal Wall, Open Approach (ICD-10-PCS; principal; 2017-02-19 12:45)
DX: K42.0 Umbilical hernia with obstruction, without gangrene (principal); F17.210 Nicotine dependence, cigarettes, uncomplicated
CPT/HCPCS: 29229; 29230; 29259; 50004; 60001; 70002; 80102; 81238; 84038; 84046; 90100; 90616; 92610; 92720; 94001; 94060; 95059